=== PATIENT | female | born 1985 | race Caucasian/White ===

== ENCOUNTER 2021-11-06 15:38 | Outpatient (CLI) | payer MEDICAID, SELFPAY ==
[2021-11-06] VITALS (26 sets, daily range): BP systolic 100–117; BP diastolic 52–64; PULSE 67–111; RESP 18–20; TEMP 36.5–36.8; O2SAT 100; BMI 21.3
[2021-11-06 16:19] LABS: Actim Prom Positive
[2021-11-06] MEDS: dextrose 5%-lactated ringers 1,000 ML 125 ML IV (16:54)
[2021-11-06] MEDS: ampicillin 2,000 MG in sodium chloride 0.9% (plus) 50 ML 100 MG IV (16:55)
[2021-11-06] MEDS: magnesium sulfate premix 4 GM/100 ML PREMIX IV (16:56)
[2021-11-06] MEDS: NIFEdipine 10 mg Capsule 30 MG PO (16:59)
[2021-11-06] MEDS: betamethasone susp 6 mg/mL 5 mL 12 MG IM (17:00)
[2021-11-06 17:05] LABS: Amphetamines Screen Urine Negative (Negative); Barbiturates Screen Urine Negative (Negative); Benzodiazepines Screen Urine Negative (Negative); Cocaine Screen Urine Negative (Negative); Opiate Screen Urine Negative (Negative); PCP Screen Urine Negative (Negative); THC Screen Urine Negative (Negative)
[2021-11-06 17:15] LABS: Basophils # 0.1 10^3/uL (0.0-0.1); Basophils % 0.5 %; Eosinophils # 0.1 10^3/uL (0.0-0.8); Eosinophils % 0.5 %; Hematocrit 38.5 % (37.0-47.0); Hemoglobin 12.6 g/dL (11.5-15.3); Lymphocytes # 1.4 10^3/uL (0.8-4.8); Lymphocytes % 10.4 %; Mean Corpuscular HGB Conc 32.7 g/dL (30.0-36.0); Mean Corpuscular Hemoglobin 32.9 pg (28.0-34.0); Mean Corpuscular Volume 100.5 fl (81-99); Monocytes # 0.8 10^3/uL (0.2-0.9); Monocytes % 6.3 %; Neutrophils # 10.68 10^3/uL (1.8-7.7); Neutrophils % 81.7 %; Nucleated Red Blood Cells % 0 %; Platelet Count 251 10^3/cmm (130-400); Red Blood Count 3.83 10^6/uL (4.1-5.3); Red Cell Distribution Width 13.2 % (12.1-15.1); White Blood Count 13.1 10^3/uL (4.0-10.0)
[2021-11-06] MEDS: magnesium sulfate premix 20 GM/500 ML BAG IV (17:18)
--- NOTE | 2021-11-06 17:31 | PM.PN ---
Subjective Subjective: Mrs. Slater 36-year-old female G3, P2 with an estimated gestational age at 28 weeks 5 days complaining of rupture of membrane. Vitals/I&O/Wt Last Vital Signs Temp 97.7 F 11/06/21 17:28 Pulse 110 H 11/06/21 17:27 BP 102/52 11/06/21 17:27 Pulse Ox 100 11/06/21 17:27 Physical Exam Narrative: GA: Alert and oriented ?3. Lungs: Clear to auscultation bilaterally. Heart: Regular rhythm and rate. Abdomen: Gravid, full the height equals dates, nontender. TRAP SETTER: SVE; dilation: 2 cm, effacement: 60%, station: -3, presentation: Cephalic, membranes: PPROM. Extremities: no edema, no cyanosis, no calves pain. heart tracing: Basal rate: 140's bpm, Variability: moderate for gestational age Accelerations: present, Decelerations: absent, Contraction: q4-11min. Urinary Catheter Management: Hawk: Cath Placed During This Visit: yes Urinary Catheter Date of Insertion: 11/06/21 Urinary Catheter Time of Insertion: 17:13 Data : 11/06/21 17:05 A&P Assessment and plan (1) premature rupture of membranes: Mrs. Slater 36-year-old female G3, P2 with an estimated gestational age approximately 28 weeks +5 days brought in by ambulance referring premature rupture of membranes. Upon evaluation labor and delivery premature rupture of membranes was confirmed by visual and Actim Prom test. heart tracing reassuring showing irregular contractions, tocolytics were started, corticosteroids for lung maturation was given, and magnesium sulfate for neuro protection was also given. The patient and her /father of the infant were counseled regarding recommendation to be transferred to a higher level of care hospital with NICU services due to the extreme prematurity of the infant. The patient elected to be transferred to [facility]. [facility] was contacted and Dr. Lr hospitalist from L&D accepted the patient. Status: Acute (2) labor in third trimester without delivery: Status: Acute Attestations Medical Necessity Statement*: In my professional opinion per admitting diagnosis Coding Level of Care Code Acute Marketing Lead for [facility] Fwd Diagnoses labor in third trimester without delivery O60.03 premature rupture of membranes O42.919
[2021-11-06] MEDS: terbutaline 1 mg/mL INJ 0.25 MG SUBCUT (18:14)
== END 2021-11-06 18:24 | disposition home or self-care (01) ==
LOC: OPOB 15:53 → OBGYN 15:56
PROVIDERS: Visit Provider Obstetrics & Gynecology
DX: O42.913 Preterm premature rupture of membranes, unspecified as to length of time between rupture and onset of labor, third trimester (principal); O60.03 Preterm labor without delivery, third trimester; Z3A.28 28 weeks gestation of pregnancy
CPT/HCPCS: 51702; 59025; 80306; 84112; 85025; 86850; 86900; 96372; 99211; J0290; J0702; J3105; J3475

== ENCOUNTER 2021-12-31 16:01 | Emergency (ER) | payer MEDICAID, SELFPAY ==
[2021-12-31 16:09] VITALS: BP 104/48; PULSE 64; RESP 16; TEMP 36.6; O2SAT 98; BMI 19.7
--- NOTE | 2021-12-31 16:20 | ED_ITS ---
HPI - Extremity Problem General: Chief complaint: Extremity Injury, Lower Stated complaint: Stepped on tone nail Time Seen by Provider: 12/31/21 16:17 Source: patient Mode of arrival: ambulatory Limitations: no limitations History of Present Illness: 36-year-old female presents to the ER today after stepping on a tone old nail just prior to arrival. Patient reports she was wearing flip-flops and looking at a property that was her cell when she stepped on a tone nail. Patient reports that punctured the middle of her right foot. Patient reports there is some bleeding. She has not cleaned it at this time. Tetanus status unknown. Patient reports there is pain with weightbearing. Review of Systems General: Reports: 10 or more systems reviewed and unremarkable except in HPI and below Physical Exam Const: COMMON NORMALS: no acute distress, average body habitus, patient oriented x3, no limitations, healthy appearing, alert and well nourished Resp: COMMON NORMALS: normal respiratory effort EFFORT & INSPECTION: Yes able to speak in complete sentences Cardio: COMMON NORMALS: regular rate and regular rhythm RATE: regular rate RHYTHM: regular rhythm Extremity: OTHER: Patient has tenderness over the plantar surface of the right foot in the area of the entry wound. No swelling is noted. No bruising is noted. No foreign body noted. Neuro: COMMON NORMALS: patient oriented x3 SENSORIUM/ORIENTATION: Yes alert Psych: COMMON NORMALS: mental status grossly normal, Normal thought process present and cooperative THOUGHT PROCESS: Normal thought process present Skin: NARRATIVE SKIN EXAM: Patient has a puncture wound to the right plantar surface of the foot. This is between the third and fourth metatarsals. There is no active bleeding but rather oozing noted to be coming from the wound. No foreign body identified. No wound that requires closure. Course ED course: 36-year-old female presents to the ER today for a puncture wound to the bottom of her right foot. Patient reports she was wearing foot flops and o ut on an unknown property when she stepped on an old tone nail. Patient reports she was able to remove the nail and currently there is some oozing/bleeding. Patient reports tetanus status unknown. Patient reports pain with ambulation due to soreness of the foot. Vital Signs: Vital signs: Vital Signs Temperature 97.9 F 12/31/21 16:09 Pulse Rate 64 12/31/21 16:09 Respiratory Rate 16 12/31/21 16:09 Blood Pressure 104/48 12/31/21 16:09 Pulse Oximetry 98 12/31/21 16:09 Oxygen Delivery Me thod 12/31/21 16:09 MDM - Extremity (Nontraumatic) Medical Decision Making 36-year-old female presents to the ER today for a puncture wound to the bottom of her right foot. Patient reports she was wearing foot flops and out on an unknown property when she stepped on an old tone nail. Patient reports she was able to remove the nail and currently there is some oozing/bleeding. Patient reports tetanus status unknown. Patient reports pain with ambulation due to soreness of the foot. Discussed wound care with patient. Recommend soaking with some salts once daily. Take Augmentin as prescribed. We will do a Tdap shot before patient leaves ER today. Patient requests crutches as she reports she has chores to do at home and it hurts too bad to walk on today. Recommend patient use crutches for the next 24 to 48 hours and then weightbearing as paige ated. Follow-up with PCP in 7 to 10 days for wound recheck. Return to the ER with new or worsening symptoms. Patient verbalized understanding and is in agreement with the treatment plan. Critical Care Time Critical Care Time: Critical Care Time: No Discharge Plan Discharge Patient Disposition: Home Clinical Impression: Puncture wound of skin from metal nail Condition: Stable Prescriptions: New amoxicillin-pot clavulanate 875-125 mg tablet 1 tab PO BID 10 Days Qty: 20 0RF No Action potassium Discharge Orders: Discharge ED (Routine); Ordered 12/31/21 Ordered By: Belem Jarrell Discharge Diet: Usual diet Discharge Activity: Increase activity as tolerated Patient Instructions: Opioid Safety Activity Restrictions/Additional Instructions: Use crutches for the next 24 to 48 hours. Clean wound with warm soapy water once daily. Soak in Epsom salts daily. Take Augmentin as prescribed. Follow- up with PCP in 7 to 10 days for wound recheck. Return to the ER with new or worsening symptoms. Coding Level of Care Code ED Test Lead Application Testing for Velia Villarreal
[2021-12-31] MEDS: tetanus-dipt-pertussis 0.5 mL SDV IM (16:51)
--- NOTE | 2021-12-31 16:51 | PC.NURSE ---
TDAP ADM BY EVELYN JEFFRIES.
[2021-12-31 17:07] VITALS: PULSE 70; RESP 16; O2SAT 97
== END 2021-12-31 17:09 | disposition home or self-care (01) ==
PROVIDERS: Emergency Provider Physician Assistant
DX: S91.331A Puncture wound without foreign body, right foot, initial encounter (principal); W45.0XXA Nail entering through skin, initial encounter; Z23 Encounter for immunization
CPT/HCPCS: 90471; 90715; 99283; E0114